=== PATIENT | female | born 1950 | race Caucasian/White ===

== ENCOUNTER 2018-05-12 20:45 | Emergency (ER) | payer MEDICARE, OTHER ==
[~2018-05-12] VITALS: Ht 167.6 cm; Wt 107.7 kg
[2018-05-12 20:58] VITALS: BP 134/47
== END 2018-05-12 21:48 | disposition home or self-care (01) ==
LOC: ER 20:46
DX: S00.81XA Abrasion of other part of head, initial encounter (principal); I10 Essential (primary) hypertension; Z88.1 Allergy status to other antibiotic agents; W01.198A Fall on same level from slipping, tripping and stumbling with subsequent striking against other object, initial encounter; Y93.89 Activity, other specified; Y92.89 Other specified places as the place of occurrence of the external cause; Y99.8 Other external cause status
CPT/HCPCS: 99281